=== PATIENT | male | born 1935 | race Caucasian/White ===

== ENCOUNTER 2022-01-10 05:08 | Inpatient (IN) | payer MEDICARE ==
[~2022-01-10] VITALS: Ht 172.7 cm; Wt 63.5 kg
[2022-01-10 05:39] LABS: BASOPHILS ABSOLUTE AUTO 0.06 K/mm3 (0.00-0.23); BASOPHILS PERCENT AUTO 0 % (0-2); Hematocrit 36.3 % (37.0-53.0); Hemoglobin 12.9 g/dL (13.5-17.5); LYMPHOCYTES ABSOLUTE AUTO 0.52 K/mm3 (0.84-5.20); LYMPHOCYTES PERCENT AUTO 2 % (21-46); MONOCYTES ABSOLUTE AUTO 1.51 K/mm3 (0.16-1.47); MONOCYTES PERCENT AUTO 6 % (4-13); Mean Corpuscular HGB 32.8 pg (26.0-34.0); Mean Corpuscular HGB Conc 35.5 g/dL (31.5-36.5); Mean Corpuscular Volume 92 fL (80-100); Mean Platelet Volume 11.6 fL (9.1-12.4); Platelet Count 153 K/mm3 (150-400); RDW Coefficient Variation 11.9 % (11.7-14.2); RDW Standard Deviation 40.1 fL (35.1-46.3); Red Blood Cell Count 3.93 M/mm3 (4.30-5.90)
[2022-01-10 05:44] LABS: EOSINOPHILS PERCENT AUTO 0 % (0-6); IMMATURE GRAN ABSOLUTE AUTO 0.38 K/mm3 (0.00-0.10); IMMATURE GRAN PERCENT AUTO 1 % (0-1); NEUTROPHILS ABSOLUTE AUTO 24.83 K/mm3 (1.96-9.15); NEUTROPHILS PERCENT AUTO 91 % (41-73)
[2022-01-10 06:01] LABS: Alanine Aminotransfer (ALT/SGP 45 U/L (12-78); Albumin, Blood 3.7 g/dL (3.4-5.0); Alk Phos 72 U/L (50-136); Anion Gap 12 mmol/L (6-16); Aspartate Aminotrans (AST/SGOT 60 U/L (12-37); Bilirubin, Direct 0.3 mg/dL (0.0-0.3); Bilirubin, Indirect 1.1 mg/dL (0.1-0.7); Bilirubin, Total 1.4 mg/dL (0.1-1.0); Blood Urea Nitrogen 16 mg/dL (8-24); Bun/Creatinine Ratio 17.5 (12.0-20.0); CO2, Blood 18 mmol/L (21-32); Calcium, Blood 8.8 mg/dL (8.5-10.1); Chloride, Blood 105 mmol/L (98-108); Creatinine, Blood 0.91 mg/dL (0.60-1.20); Globulin, Blood 3.8 g/dL (2.2-4.0); Glomerular Filtration Rate >60 (60-); Glucose, Blood 120 mg/dL (70-99); Magnesium, Blood 1.8 mg/dL (1.6-2.4); Potassium, Blood 2.8 mmol/L (3.5-5.5); Sodium, Blood 135 mmol/L (136-145); Total Protein, Blood 7.5 g/dL (6.4-8.2)
[2022-01-10 06:58] LABS: Influenza A, PCR NEGATIVE (NEGATIVE); Influenza B, PCR NEGATIVE (NEGATIVE); Resp Syncytial Virus, PCR NEGATIVE (NEGATIVE); SARS-Cov-2 (COVID-19) PCR, MMC NEGATIVE (NEGATIVE)
[2022-01-10] MEDS ORDERED: DIAMOX SEQUELS PO (07:10)
[2022-01-10] MEDS ORDERED: LISINOPRIL-HCT1 EAC1 PO (07:10)
[2022-01-10] MEDS ORDERED: TIMDOROPSO BOTHEYES (07:10)
[2022-01-10] MEDS ORDERED: EFFEXOR XR37.5 MG PO (07:10)
[2022-01-10] MEDS ORDERED: BIMATOPROST2.5 ML BOTHEYES (07:11)
[2022-01-10] MEDS ORDERED: Adderall 5mg tab5 MG PO (07:11)
[2022-01-10] MEDS ORDERED: BRIMONIDINE TART5 M2 BOTHEYES (07:11)
[2022-01-10 07:48] LABS: Creatine Kinase MB 8.3 ng/mL (0.0-3.6); Creatine Kinase MB Index 1.5 (0.0-4.0)
[2022-01-10 09:56] LABS: Source, Urine Clean Catch
[2022-01-10 10:00] LABS: PCO2 Venous 38.3 mmHg (38-42); pH Blood Venous 7.31 (7.34-7.37)
[2022-01-10 10:01] LABS: Appearance, Urine Clear (Clear); Bilirubin, Urine Neg (Neg); Blood, Urine Neg (Neg); Color, Urine Yellow (P-Yellow); Glucose Qualitative, Urine Neg (Neg); Ketones, Urine 1+ (Neg); Leukocyte Esterase, Urine Neg (Neg); Nitrite, Urine Neg (Neg); Protein, Urine Neg (Neg); Specific Gravity, Urine 1.015 (1.003-1.022); Urobilinogen, Urine NORM (Normal)
[2022-01-10 10:01] LABS: Base Excess Venous -7.3 mmol/L; Bicarbonate Venous 18.4 mmol/L (24.0-30.0)
--- NOTE | 2022-01-10 14:01 | NUR ---
SHAUNA GE NOTIFED OF PATIENTS UNCONTROLLED PAIN AND ANXIETY. PROVIDER ORDERED PERCOCET 5-325MG PO Q6H PRN PAIN. CONTINUE TO MONITOR OTHERWIZE.
--- NOTE | 2022-01-10 17:20 | NUR ---
PATIENT A AND O 4X HOWEVER IS NOT THE BEST HISTORIAN WITH MEDICATIONS. A FAX REQUEST WAS MADE FOR CURRENT MEDICATION LIST AT [facility]. PATIENT WAS ABLE TO WALK WITH PT WITH A 1P ASSIST WITH A WALKER TO THE BATHROOM. PATIENTS PAIN IS BETTER CONTROLLED WITH PERCOCET AND PATIENT HAS REMAINED AFEBRILE SINCE TX FROM ED. RIGHT ELBOW PICTURE TAKEN AND DRESSING APPLIED SMALL SEROUS DRAINAGE FROM RIGHT ELBOW.
--- NOTE | 2022-01-11 04:25 | NUR ---
SHIFT SUMMARY: A&OX4, IRRITABLE AND CANTANKEROUS WITH STAFF, CAN BE ARGUMENTATIVE. RESITIVE TO CARE/ASSITANCE WITH EXPLANATIONS COMPLIES. AMBULATED TO BATHROOM 1PA USE OF FWW UNSTEADY GAIT AND NSAFE USE OF WALKER. HAD LARGE DIARRHEA, PATIENT STATES HE HAS NOT BEEN EATING WELL AND YESTERADAY ALL HE HAD HAS ALCOHOL AND THAT GIVES HIM DIARRHEA. BOWEL MOVEMENT WAS DARK BROWN IN COLOR SOME UNDIGESTED FOOD PARTICLES, NO MUCOUS. WCTM.
[2022-01-11 05:12] LABS: Hematocrit 37.7 % (37.0-53.0); Hemoglobin 13.4 g/dL (13.5-17.5); Mean Corpuscular HGB 33.1 pg (26.0-34.0); Mean Corpuscular HGB Conc 35.5 g/dL (31.5-36.5); Mean Corpuscular Volume 93 fL (80-100); Mean Platelet Volume 10.9 fL (9.1-12.4); Platelet Count 150 K/mm3 (150-400); RDW Coefficient Variation 12.3 % (11.7-14.2); RDW Standard Deviation 42.5 fL (35.1-46.3); Red Blood Cell Count 4.05 M/mm3 (4.30-5.90); White Blood Cell Count 31.31 K/mm3 (4.00-11.30)
[2022-01-11 05:31] LABS: BAND PERCENT MAN 23 % (0-8); BASOPHILS PERCENT MAN 0 % (0-2); EOSINOPHILS PERCENT MAN 0 % (0-6); LYMPHOCYTES ABSOLUTE MAN 0.31 K/mm3 (0.84-5.20); LYMPHOCYTES PERCENT MAN 1 % (21-46); MONOCYTES ABSOLUTE MAN 0.93 K/mm3 (0.16-1.47); MONOCYTES PERCENT MAN 3 % (4-13); NEUTROPHILS ABSOLUTE MAN 30.05 K/mm3 (1.96-9.15); SEG NEUTROPHILS PERCENT MAN 73 % (41-73); TOTAL CELLS COUNTED 100
[2022-01-11 05:47] LABS: Alanine Aminotransfer (ALT/SGP 71 U/L (12-78); Albumin, Blood 2.7 g/dL (3.4-5.0); Albumin/Globulin Ratio 0.7 (0.8-1.8); Alk Phos 65 U/L (50-136); Anion Gap 10 mmol/L (6-16); Aspartate Aminotrans (AST/SGOT 101 U/L (12-37); Bilirubin, Total 1.6 mg/dL (0.1-1.0); Blood Urea Nitrogen 19 mg/dL (8-24); Bun/Creatinine Ratio 24.1 (12.0-20.0); CO2, Blood 17 mmol/L (21-32); CPK Creatine Kinase 594 U/L (39-308); Calcium, Blood 8.5 mg/dL (8.5-10.1); Chloride, Blood 106 mmol/L (98-108); Creatinine, Blood 0.79 mg/dL (0.60-1.20); Globulin, Blood 3.7 g/dL (2.2-4.0); Glomerular Filtration Rate >60 (60-); Glucose, Blood 117 mg/dL (70-99); Potassium, Blood 2.9 mmol/L (3.5-5.5); Sodium, Blood 133 mmol/L (136-145); Total Protein, Blood 6.4 g/dL (6.4-8.2)
--- NOTE | 2022-01-11 10:09 | NUR ---
CINDY BOOGIE AND EVETTE CAME TO BEDSIDE AND ARE AWARE THAT PT IS CURRENTLY GETTING IV POTASSIUM AND WILL GET IV MAG THEREAFTER. REMOVED OLD DRESSING TO PT'S RIGHT ELBOW SO TO VISUALIZE WOUND AND REPLACED WITH NEW DRESSING WITH DRS WITNESSING.
--- NOTE | 2022-01-11 15:26 | NUR ---
PT'S FRIEND WAS AT BEDSIDE ASKING WHY PT WAS HAVING FREQUENT FALLS AT HOME. REVIEWED PT'S EKG AND OPTICIAN APPRENTICE CAME TO SEE PT. THIS RN AND OPTICIAN APPRENTICE REVIEWED TELE STRIPS AND MEDS AND OPTICIAN APPRENTICE STATED SHE WOULD DISCUSS FURTHER WITH DR PRIOR TO DC TO SEE IF PT NEEDS HOLTER MONITOR WITH DISCHARGE SINCE PT HAS BEEN HAVING PAUSES ON TELE, THAT NIGHT RN STATED DR IS AWARE OF.
--- NOTE | 2022-01-11 15:54 | NUR ---
CALL TO DR BOOGIE TO ASK ABOUT ZIO OR HOLTER FOR DC. STATES HE WAS UNAWARE OF PAUSES AND ASKS FOR TELE TO KEEP TALLY. DRY PRESS OPERATOR STATES SHE WILL LOOK BACK AT HISTORY AND REVIEW. ANIMAL ASSISTED THERAPIST AWARE OF PLAN FOR THIS ORDER AT [facility]
[2022-01-11 17:33] LABS: Anion Gap 5 mmol/L (6-16); Blood Urea Nitrogen 24 mg/dL (8-24); Bun/Creatinine Ratio 27.9 (12.0-20.0); CO2, Blood 17 mmol/L (21-32); Calcium, Blood 7.9 mg/dL (8.5-10.1); Chloride, Blood 110 mmol/L (98-108); Creatinine, Blood 0.86 mg/dL (0.60-1.20); Glomerular Filtration Rate >60 (60-); Glucose, Blood 165 mg/dL (70-99); Potassium, Blood 3.7 mmol/L (3.5-5.5); Sodium, Blood 132 mmol/L (136-145)
--- NOTE | 2022-01-11 17:47 | NUR ---
SHIFT SUMMARY: PT'S DRESSING CHANGED THIS SHIFT WITH DRS WITNESSING SO THEY COULD LAY EYES ON WOUND. DRS NOTE STATES PT INJURED ELBOW AFTER FALL. PT'S S.O. STATES PT FALLS FREQUENTLY AT HOME. TELE STATES PT HAS BEEN HAVING PAUSES AND IS KEEPING TRACK OF FREQUENCY. CALL TO DR BOOGIE WHO STATES HE WILL POSSIBLY ORDER ZIO PATCH OR HOLTER MONITOR BEFORE PT GOES HOME. NO ACUTE NEEDS AT THIS TIME.
[2022-01-12 05:10] LABS: Hematocrit 30.8 % (37.0-53.0); Hemoglobin 11.1 g/dL (13.5-17.5); Mean Corpuscular HGB 33.3 pg (26.0-34.0); Mean Corpuscular Volume 93 fL (80-100); Mean Platelet Volume 11.2 fL (9.1-12.4); Platelet Count 143 K/mm3 (150-400); RDW Coefficient Variation 12.4 % (11.7-14.2); Red Blood Cell Count 3.33 M/mm3 (4.30-5.90); White Blood Cell Count 24.09 K/mm3 (4.00-11.30)
[2022-01-12 05:29] LABS: BAND PERCENT MAN 22 % (0-8); BASOPHILS PERCENT MAN 0 % (0-2); EOSINOPHILS PERCENT MAN 0 % (0-6); LYMPHOCYTES ABSOLUTE MAN 0.72 K/mm3 (0.84-5.20); LYMPHOCYTES PERCENT MAN 3 % (21-46); METAMYELOCYTE ABSOLUTE MAN 0.72 K/mm3 (0.00-0.00); METAMYELOCYTE PERCENT MAN 3 % (0-0); MONOCYTES ABSOLUTE MAN 0.72 K/mm3 (0.16-1.47); MONOCYTES PERCENT MAN 3 % (4-13); NEUTROPHILS ABSOLUTE MAN 21.92 K/mm3 (1.96-9.15); SEG NEUTROPHILS PERCENT MAN 69 % (41-73); TOTAL CELLS COUNTED 100
[2022-01-12 05:33] LABS: Anion Gap 9 mmol/L (6-16); Blood Urea Nitrogen 14 mg/dL (8-24); Bun/Creatinine Ratio 29.4 (12.0-20.0); CO2, Blood 13 mmol/L (21-32); Chloride, Blood 119 mmol/L (98-108); Creatinine, Blood 0.48 mg/dL (0.60-1.20); Glomerular Filtration Rate >60 (60-); Glucose, Blood 94 mg/dL (70-99); Sodium, Blood 141 mmol/L (136-145)
[2022-01-12 05:42] LABS: Calcium, Blood 5.9 mg/dL (8.5-10.1)
--- NOTE | 2022-01-12 07:40 | NUR ---
SHIFT SUMMARY PT A/OX4 BUT FORGETFUL, AFIB IN THE 80'S PER RECREATION DIRECTOR , DENIES CP OR SOB, RESP UNLABORED. UP TO BR WITH 1 ASSIST AND WALKER AND PT WEAK BUT STEADY ON FEET, RT. ELBOW DRSG CHANGED THIS AM WITH SMALL OPEN AREA WITH SMALL AMT. SEOSANGUINOUS DRAINAGE NOTED, ABRASIONS ON BACK SCALP D/I, AND SKIN TEAR THAT WAS NOTED ON RT. LOWER BACK ON INITIAL ASSESSMENT WAS CLEANED AND DRSG APPLIED BECAUSE PT HAD REFUSED UP UNTIL NOW. AT [address] ALAS WAS NOTIFIED OF CRITICAL POTASSIUM 2 AND CRITICAL CALCIUM 5.9 WITH NEW ORDERS RECEIVED. PT REFUSED IV POTASSIUM ORDERED AND STATED "IT BURNT ALL DAY YESTERDAY". DR. ALAS WAS NOTIFIED AT 0642 OF PT REFUSING IV POTASSIUM AND NEW ORDERS WERE RECEIVED. C/O RT. ELBOW PAIN THIS SHIFT AND WAS MEDICATED PER DEC. NO ACUTE DISTRESS NOTED.
[2022-01-12 09:36] LABS: Potassium, Blood 3.5 mmol/L (3.5-5.5)
[2022-01-12 09:41] LABS: Calcium, Blood 8.7 mg/dL (8.5-10.1)
--- NOTE | 2022-01-12 16:38 | NUR ---
SHIFT SUMMARY PT A&O X3, CONFUSED @ TIMES BUT EASILY REDIRECTABLE. IRRITABLE T/O SHIFT. PT STATES HE WISHES TO GO HOME. DRESSING TO R ELBOW C/D/I, CHANGED THIS SHIFT. UP TO RESTROOM FOR ELIMINATION. VSS. CALL LIGHT W/IN REACH. TELE IN PLACE AFIB @ 83 PER INTERNET ASSESSOR. NS @ 75. PLAN TO D/C TOMORROW PENDING CONTINUED STABLE LAB RESULTS.
--- NOTE | 2022-01-13 00:50 | NUR ---
CHASSIS MECHANIC SUMMARY PATIENT HAD A FAIR SHIFT, HE IS ALERT AND ORIENTED. INSISTING HE WILL BE GOING HOME TODAY. OTHERWISE NO COMPLAINTS OVERNIGHT. HIS VITALS ARE CHECKED AND RECORDED. WILL CONTINUE TO MONITOR HIM.
[2022-01-13 06:12] LABS: BASOPHILS ABSOLUTE AUTO 0.02 K/mm3 (0.00-0.23); BASOPHILS PERCENT AUTO 0 % (0-2); EOSINOPHILS ABSOLUTE AUTO 0.05 K/mm3 (0.00-0.68); EOSINOPHILS PERCENT AUTO 0 % (0-6); Hematocrit 30.4 % (37.0-53.0); Hemoglobin 10.9 g/dL (13.5-17.5); IMMATURE GRAN PERCENT AUTO 1 % (0-1); LYMPHOCYTES ABSOLUTE AUTO 1.12 K/mm3 (0.84-5.20); LYMPHOCYTES PERCENT AUTO 6 % (21-46); MONOCYTES PERCENT AUTO 6 % (4-13); Mean Corpuscular HGB Conc 35.9 g/dL (31.5-36.5); Mean Corpuscular Volume 92 fL (80-100); NEUTROPHILS ABSOLUTE AUTO 15.73 K/mm3 (1.96-9.15); NEUTROPHILS PERCENT AUTO 87 % (41-73); Platelet Count 153 K/mm3 (150-400); RDW Coefficient Variation 12.4 % (11.7-14.2); RDW Standard Deviation 42.1 fL (35.1-46.3); White Blood Cell Count 18.02 K/mm3 (4.00-11.30)
[2022-01-13 06:22] LABS: Anion Gap 6 mmol/L (6-16); Blood Urea Nitrogen 12 mg/dL (8-24); Bun/Creatinine Ratio 17.5 (12.0-20.0); CO2, Blood 22 mmol/L (21-32); Chloride, Blood 104 mmol/L (98-108); Creatinine, Blood 0.69 mg/dL (0.60-1.20); Glomerular Filtration Rate >60 (60-); Glucose, Blood 107 mg/dL (70-99); Potassium, Blood 3.2 mmol/L (3.5-5.5); Sodium, Blood 132 mmol/L (136-145)
--- NOTE | 2022-01-13 17:06 | NUR ---
SHIFT SUMMARY PT A&O X4 AND IN FAIRLY PLEASENT MOOD T/O SHIFT. PT VERBALIZED WANTING TO GO HOME TODAY, FRIEND @ BEDSIDE DURING VISITING HOURS. FRIEND STATED SHE WOULD BE ABLE TO HELP PROVIDE CARE TO THE PT @ HOME AND THE FRIEND SAID SHE IS LICENCED THROUGH THE STATE. WAITING D/C ORDERS @ THIS TIME. CALL LIGHT W/IN REACH. TELE D/FLORY THIS SHIFT.
[2022-01-13] MEDS ORDERED: CEPH500 PO (18:59)
[2022-01-13] MEDS ORDERED: VISBIOME 112.51 EACH PO (19:00)
[2022-01-13] MEDS ORDERED: LISI20 PO (19:00)
--- NOTE | 2022-01-13 20:14 | NUR ---
DISCHARGE NOTE DISCHARGED TO HOME PER MD ORDERS. FRIEND CAME TO TAKE PT HOME, NO IV, WAS REMOVED ON DAY SHIFT. VSS. DENIED PAIN AND LOSS OF FEELING. ALERT TO QUESTIONS ASKED. TOLERATED HS MEDS PRIOR TO LEAVING. ACCOMPANIED TO HOSPITAL FRONT DOOR, BY STAFF MEMBER VIA WHEELCHAIR.
== END 2022-01-13 20:04 | disposition home health service (06) | DRG 872 ==
LOC: ER 05:08 → ERHOLD 09:05 → MEDS 09:05
PROVIDERS: Emergency Medicine; Family Medicine; Internal Medicine; Nurse Practitioner Acute Care; Student in an Organized Health Care Education/Training Program; ADMIT Internal Medicine
DX: A41.9 Sepsis, unspecified organism (principal); L03.113 Cellulitis of right upper limb; E87.2 Acidosis; I24.8 Other forms of acute ischemic heart disease; I50.32 Chronic diastolic (congestive) heart failure; Z66 Do not resuscitate; I11.0 Hypertensive heart disease with heart failure; E83.51 Hypocalcemia; Z20.822 Contact with and (suspected) exposure to COVID-19; S50.319A Abrasion of unspecified elbow, initial encounter; D72.829 Elevated white blood cell count, unspecified; E87.6 Hypokalemia; F32.A Depression, unspecified; T50.2X5A Adverse effect of carbonic-anhydrase inhibitors, benzothiadiazides and other diuretics, initial encounter; Z79.899 Other long term (current) drug therapy
CPT/HCPCS: 0241U; 36415; 71045; 73080; 73201; 80048; 80053; 80076; 81003; 82310; 82550; 82553; 82803; 83605; 83690; 83735; 83880; 84132; 84145; 84484; 85025; 85651; 86140; 87040; 93005; 93010; 96365; 96366; 96367; 96375; 97161; 97530; 99285-25; A9270; C8929; J0610; J0690; J1650; J3475; J3480; J7030; J7050; Q9957; Q9967

== ENCOUNTER 2024-02-06 03:53 | Observation (INO) | payer OTHER ==
[~2024-02-06] VITALS: Ht 172.7 cm; Wt 60.4 kg
[2024-02-06] VITALS (20 sets, daily range): BP systolic 111–133; BP diastolic 59–99
[~2024-02-06 03:53] MED LIST: Adderall 5mg tab5 MG PO; BIMATOPROST2.5 ML BOTHEYES; BRIMONIDINE TART5 M2 BOTHEYES; CEPH500 PO; DIAMOX SEQUELS PO; EFFEXOR XR37.5 MG PO; LISI20 PO; LISINOPRIL-HCT1 EAC1 PO; TIMDOROPSO BOTHEYES; VISBIOME 112.51 EACH PO
[2024-02-06] MEDS ORDERED: ASPI81CH PO (04:04)
[2024-02-06] MEDS ORDERED: LATANOPROST2.5 M3 OP (04:05)
[2024-02-06] MEDS ORDERED: Ritalin10 MG PO (04:05)
[2024-02-06 05:01] LABS: BASOPHILS ABSOLUTE AUTO 0.04 K/mm3 (0.00-0.23); BASOPHILS PERCENT AUTO 1 % (0-2); EOSINOPHILS ABSOLUTE AUTO 0.39 K/mm3 (0.00-0.68); EOSINOPHILS PERCENT AUTO 5 % (0-6); Hematocrit 34.6 % (37.0-53.0); IMMATURE GRAN ABSOLUTE AUTO 0.03 K/mm3 (0.00-0.10); IMMATURE GRAN PERCENT AUTO 0 % (0-1); LYMPHOCYTES ABSOLUTE AUTO 1.36 K/mm3 (0.84-5.20); LYMPHOCYTES PERCENT AUTO 17 % (21-46); MONOCYTES ABSOLUTE AUTO 0.63 K/mm3 (0.16-1.47); MONOCYTES PERCENT AUTO 8 % (4-13); Mean Corpuscular HGB 32.9 pg (26.0-34.0); Mean Corpuscular HGB Conc 34.7 g/dL (31.5-36.5); Mean Corpuscular Volume 95 fL (80-100); NEUTROPHILS ABSOLUTE AUTO 5.43 K/mm3 (1.96-9.15); NEUTROPHILS PERCENT AUTO 69 % (41-73); Platelet Count 122 K/mm3 (150-400); RDW Coefficient Variation 12.5 % (11.7-14.2); RDW Standard Deviation 43.4 fL (35.1-46.3); Red Blood Cell Count 3.65 M/mm3 (4.30-5.90); White Blood Cell Count 7.88 K/mm3 (4.00-11.30)
[2024-02-06 05:18] LABS: International Normalized Ratio 0.96; Prothrombin Time Results 10.3 Sec (9.7-11.5)
[2024-02-06 05:35] LABS: Alanine Aminotransfer (ALT/SGP 30 U/L (12-78); Albumin, Blood 3.7 g/dL (3.4-5.0); Alk Phos 53 U/L (50-136); Anion Gap 9 mmol/L (3-11); Aspartate Aminotrans (AST/SGOT 33 U/L (12-37); Bilirubin, Total 0.5 mg/dL (0.1-1.0); Blood Urea Nitrogen 15 mg/dL (8-24); Bun/Creatinine Ratio 18.3 (12.0-20.0); CO2, Blood 28 mmol/L (21-32); Calcium, Blood 9.5 mg/dL (8.5-10.1); Chloride, Blood 104 mmol/L (98-108); Creatinine, Blood 0.82 mg/dL (0.60-1.20); Ethanol (Alcohol), Blood, Med <3 mg/dL; Globulin, Blood 3.6 g/dL (2.2-4.0); Glomerular Filtration Rate 84 (60-); Glucose, Blood 118 mg/dL (70-99); Potassium, Blood 3.6 mmol/L (3.5-5.5); Sodium, Blood 137 mmol/L (136-145); Total Protein, Blood 7.3 g/dL (6.4-8.2)
[2024-02-06] MEDS ORDERED: HydrALAZINE HCl 20 MG / ML 1ML Vial IV ONE (05:35)
[2024-02-06] MEDS ORDERED: Diphth,Pertuss(Acell),Tet Vac 0.5 ML VIAL IM ONE (06:05)
[2024-02-06] MEDS ORDERED: CeFAZolin Sodium 1,000 MG in NS 50 ML IV ONE ×2 (06:15→09:45)
[2024-02-06] MEDS ORDERED: levETIRAcetam 1,000 MG in NS 100 ML IV ONE (06:15)
[2024-02-06] MEDS ORDERED: NiCARdipine HCL 50 MG in NS 250 ML IV SCH (06:40)
[2024-02-06] MEDS ORDERED: [UNRECOGNIZED DRUG - OTHER] UD ONE (07:05)
[2024-02-06] MEDS ORDERED: FentaNYL Citrate 50 MCG/ML 2 ML Injection IV ONE (08:15)
[2024-02-06] MEDS ORDERED: Acetaminophen 325 MG TABLET PO PRN (08:50)
[2024-02-06] MEDS ORDERED: Ondansetron HCl 2 MG / ML 2ML Vial IV PRN (08:50)
[2024-02-06] MEDS ORDERED: NS 250 ML IV PRN (10:45)
[2024-02-06] MEDS ORDERED: CeFAZolin Sodium 2,000 MG in NS 100 ML IV SCH (16:00)
--- NOTE | 2024-02-06 18:41 | NUR ---
SHIFT SUMMARY: NEURO: PATIENT ARRIVED TO THE UNIT AROUND 10:20. THROUGHOUT THE SHIFT PATIENT ALERT AND ORIENTED TO PLACE, MONTH, PRESIDENT, AND CURRENT SITUATION. PATIENT FOLLOWING DIRECTIONS AND ANSWERING QUESTIONS APPROPRIATELY. PATIENT MOVING ALL FOUR LIMBS INDEPENDENTLY. PATIENT HAS A TORN ROTATOR CUFF IN THE RIGHT SHOULDER. HE REPORTS THAT HE HAS LIMITED MOBILITY IN THE RIGHT SHOULDER. PATIENT FOLLOWING RN'S FINGER WITH HIS EYES. PATIENT HAS AN EQUAL SMILE AND FULL MOBILITY OF HIS TONGUE AND LIPS. PATIENT AK CHIN. PATIENT'S FRIEND REJI REPORTS THAT HIS SPEECH IS SLIGHTLY GARBLED. NO CHANGES TO HIS SPEECH DURING THE SHIFT. PATIENT ABLE TO EAT AND SWALLOW WITHOUT DIFFICULTY. PATIENT'S FRIEND REPORTS THAT HE DRINKS UP TO 4 BEERS PLUS A GLASS OF WINE PER EVENING. INTEGUMENTARY: PATIENT'S RIGHT EAR HAD MINIMAL BLOODY DRAINAGE DURING THE SHIFT. MOST OF THE INJURY IS SCABBED OVER. PATIENT REPORTS DECREASED HEARING IN THE RIGHT EAR. CARDIAC: NICARDIPINE GTT ON STANDBY THROUGHOUT THE SHIFT. SBP <140. HR IN THE 60S. PATIENT DENIES CHEST PAIN OR DISCOMFORT. RESPIRATORY: PATIENT STABLE ON RA. SPO2 >96%. DENIES SHORTNESS OF BREATH. PATIENT REPORTS USING A PIPE EVERY DAY. DENIES NEED FOR A NICOTINE PATCH. GI/: PATIENT EATING AND DRINKING WITHOUT DIFFICULTY. PATIENT VOIDING WITHOUT DIFFICULTY. PSYCHSOCIAL: PATIENT IRRITABLE AT TIMES. PATIENT COOPERATIVE WITH CARE. PATIENT'S FRIEND REJI VISITED. PATIENT DENIED REQUEST TO CALL HIS FAMILY. HE REPORTS HE DOESN'T WANT THEM DRIVING DOWN HERE. RESPIRATORY:
[2024-02-06] MEDS ORDERED: Latanoprost 0.005% Opth Soln 2.5 ML BOTHEYES SCH (21:00)
[2024-02-06] MEDS ORDERED: Dorzolamide 2% Opth Soln BOTHEYES SCH (21:00)
[2024-02-07] VITALS (14 sets, daily range): BP systolic 99–139; BP diastolic 55–70
--- NOTE | 2024-02-07 06:32 | NUR ---
PATIENT AOX4 AND MOVES ALL EXTREMITIES. SR WITH SYS BP UNDER 140 mmHg WITHOUT NICARDIPINE RUNNING. ROOM AIR. BM OVERNIGHT.
[2024-02-07] MEDS ORDERED: Artificial Tears Opth Oint 7 GM BOTHEYES PRN (08:00)
[2024-02-07] MEDS ORDERED: Peg 400/Hypromellose/Glycerin 15 DROP/ML BTL BOTHEYES PRN (08:10)
[2024-02-07] MEDS ORDERED: Lisinopril 20 MG Tab PO SCH (09:00)
[2024-02-07] MEDS ORDERED: Methylphenidate HCL 10 MG TAB PO SCH (09:00)
[2024-02-07] MEDS ORDERED: ARTIFICIAL TEAR15 M7 BOTHEYES (10:51)
--- NOTE | 2024-02-07 11:21 | NUR ---
DISCHARGE PT UP WALKING IN ROOM INDEPENDENTLY, INSISTENT UPON GOING HOME. DR ALAS NOTIFIED. DISCHARGE ORDERS RECIEVED. PT VERBALIZED UNDERSTANDING OF ALL DISCHARGE INSTRUCTIONS AND SIGNED PAPERWORK. IV'S REMOVED. PT ASSISTED WITH DRESSING. PT GOING HOME VIA [place]. ALL PT BELONGINGS SENT HOME WITH PT.
== END 2024-02-07 11:30 | disposition home or self-care (01) ==
LOC: ER 03:53 → ICUE 03:54
PROVIDERS: Emergency Medicine; ADMIT Internal Medicine
DX: S06.350A Traumatic hemorrhage of left cerebrum without loss of consciousness, initial encounter (principal); S01.311A Laceration without foreign body of right ear, initial encounter; W01.190A Fall on same level from slipping, tripping and stumbling with subsequent striking against furniture, initial encounter; Y92.019 Unspecified place in single-family (private) house as the place of occurrence of the external cause; I10 Essential (primary) hypertension; Z87.891 Personal history of nicotine dependence; Z66 Do not resuscitate; Z79.82 Long term (current) use of aspirin; Z79.899 Other long term (current) drug therapy
CPT/HCPCS: 12052; 70450; 72125; 80053; 83605; 84443; 85025; 85610; 85730; 86850; 86900; 86901; 90715; 93005; 93010; 96365-59; 96366; 96366-59; 96367-59; 96375-59; 96376; 99285-25; A9270; G0008; G0378; J0360; J0690; J1953; J3010; J7050